=== PATIENT | male | born 1970 | race Caucasian/White ===

== ENCOUNTER 2023-04-30 14:18 | Inpatient (IN) ==
[2023-04-30] MEDS ORDERED: fentaNYL 100 MCG/2 ML VIAL IV ONE (14:46)
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
[2023-04-30 15:47] LABS: POC Pro Time 11.5 (11.9-14.5)
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
[2023-04-30 15:53] LABS: POC Calcium, Ionized 1.06 (1.16-1.32); POC Creatinine 1.2 (0.6-1.2); POC Potassium 3.8 (3.3-5.1)
[2023-04-30 16:18] LABS: Basophils # (Auto) 0.02 K/mcL (0.00-0.30); Basophils % (Auto) 0.2 % (0.0-2.0); Eosinophils # (Auto) 0.06 K/mcL (0.00-0.70); Eosinophils % (Auto) 0.7 % (0.0-7.0); Hematocrit 45.8 % (40.1-51.0); Hemoglobin 15.1 g/dL (13.7-17.5); Lymphocytes # (Auto) 1.76 K/mcL (1.50-4.80); Lymphocytes % (Auto) 19.9 % (15.5-49.0); Mean Cell Volume 89.3 fL (80.0-100.0); Mean Platelet Volume 11.7 fL (8.8-12.5); Monocytes # (Auto) 0.53 K/mcL (0.10-0.90); Neutrophils % (Auto) 72.6 % (38.0-78.0); Platelet Count 169 K/mcL (140-440); RBC 5.13 M/mcL (4.63-6.08); WBC 8.9 K/mcL (4.5-11.0)
[2023-04-30] MEDS ORDERED: ceFAZolin 2 GM in DEXTROSE 5% IN WATER 50 ML IV SCH (17:45)
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
[2023-04-30] MEDS ORDERED: ceFAZolin 1 GM VIAL ONE (17:54)
[2023-04-30 18:12] LABS: Amphetamine Screen,Urine None detected; Appearance,Urine CLEAR (Clear); Barbiturate Screen,Urine None detected; Benzodiazepines Screen,Urine None detected; Bilirubin,Urine Negative (Negative); Cannabinoid Screen,Urine Suspect Positive; Cocaine Screen,Urine None detected; Color,Urine YELLOW; Culture Indicated,Urine No; Glucose,Urine (UA) Negative (Negative); Ketones,Urine Negative (Negative); Leukocyte Esterase,Urine Negative /uL (Negative); Nitrate,Urine Negative (Negative); Opiate Screen,Urine None detected; Oxycodone, Urine Screen None detected; Phencyclidine Screen,Urine None detected; Protein,Urine Negative (Negative); Specific Gravity,Urine 1.031 (1.000-1.035); Urine Blood Negative (Negative)
[2023-04-30] MEDS ORDERED: TRANEXAMIC ACID 1,000 MG/10 ML VIAL ONE (18:15)
[2023-04-30] MEDS ORDERED: HYDROmorphone 1 MG/ML SYRINGE ONE (18:15)
[2023-04-30] MEDS ORDERED: KETAMINE 50 MG/ML Syringe IV ONE (18:15)
[2023-04-30] MEDS ORDERED: SUGAMMADEX SODIUM 200 MG/2 ML VIAL IV ONE (18:15)
[2023-04-30] MEDS ORDERED: LIDOCAINE HCL/PF 100 MG/5 ML SYRINGE IV ONE (18:15)
[2023-04-30] MEDS ORDERED: PROPOFOL 200 MG/20 ML VIAL IV ONE (18:15)
[2023-04-30] MEDS ORDERED: DEXAMETHASONE 10 MG/ML VIAL ONE (18:15)
[2023-04-30] MEDS ORDERED: MAGNESIUM SULFATE 2 GM/50 ML BAG IV ONE (18:15)
[2023-04-30] MEDS ORDERED: ONDANSETRON 4 MG/2 ML VIAL ONE ×2 (18:15→20:58)
[2023-04-30] MEDS ORDERED: ROCURONIUM 10 MG/ML ML IV ONE (18:15)
[2023-04-30] MEDS ORDERED: ePHEDrine 50 MG/5 ML SYRINGE (ANEST) IV ONE (18:15)
[2023-04-30] MEDS ORDERED: VANCOMYCIN 1 GM VIAL TOPICAL SCH (20:00)
[2023-04-30] MEDS ORDERED: BENZOCAINE/MENTHOL 1 LOZENGE PO PRN (20:02)
[2023-04-30] MEDS ORDERED: POLYETHYLENE GLYCOL 3350 17 GM PACKET PO PRN (20:02)
[2023-04-30] MEDS ORDERED: ONDANSETRON 4 MG ODT TABLET SL PRN (20:02)
[2023-04-30] MEDS ORDERED: morphine 4 MG/ML VIAL IV PRN (20:02)
[2023-04-30] MEDS ORDERED: BISACODYL 10 MG SUPP.RECT PR PRN (20:02)
[2023-04-30] MEDS ORDERED: MAGNESIUM HYDROXIDE 30 ML ORAL.SUSP PO PRN (20:02)
[2023-04-30] MEDS ORDERED: FLEETS ADULT ENEMA PR PRN (20:02)
[2023-04-30] MEDS ORDERED: ONDANSETRON 4 MG/2 ML VIAL IV PRN ×2 (20:02→20:11)
[2023-04-30] MEDS ORDERED: NITROGLYCERIN 0.4 MG TAB.SUBL SL PRN (20:08)
[2023-04-30] MEDS ORDERED: LACTATED RINGERS 250 ML IV PRN (20:11)
[2023-04-30] MEDS ORDERED: MEPERIDINE 25 MG/ML VIAL IV PRN (20:11)
[2023-04-30] MEDS ORDERED: fentaNYL 100 MCG/2 ML VIAL IV PRN (20:11)
[2023-04-30] MEDS ORDERED: NALOXONE HCL 0.4 MG/ML VIAL IV PRN (20:11)
[2023-04-30] MEDS ORDERED: METHOCARBAMOL 1,000 MG/10 ML VIAL IV PRN (20:11)
[2023-04-30] MEDS ORDERED: PROMETHAZINE 25 MG/ML VIAL IV PRN (20:11)
[2023-04-30] MEDS ORDERED: ACETAMINOPHEN 1,000 MG/100 ML BAG IV ONE ×2 (20:11→20:22)
[2023-04-30] MEDS ORDERED: IPRATROPIUM/ALBUTEROL 3 ML AMPUL.NEB NEB PRN (20:11)
[2023-04-30] MEDS ORDERED: diphenhydrAMINE 50 MG/ML VIAL IV PRN (20:11)
--- NOTE | 2023-04-30 20:13 | Brief Operative Note ---
Brief Operative Note Date of procedure: 04/30/23 Pre-op diagnosis: Left hip fracture Post-op diagnosis: same Procedure: ADRIAN Grafts/Implants: Yes Anesthesia: GETA Findings: Fracture into troch Complications: none Surgeon: Izaiah Avelar Make Up Girl: Duane Metcalf Estimated blood loss (cc): 300 Specimens Removed/Pathology: none sent Condition: stable
[2023-04-30] MEDS ORDERED: LACTATED RINGERS 1,000 ML IV SCH (20:15)
[2023-04-30] MEDS ORDERED: METHOCARBAMOL 1,000 MG/10 ML VIAL ONE (20:18)
[2023-04-30] MEDS ORDERED: KETOROLAC 30 MG/ML VIAL IV ONE (22:00)
[2023-04-30] MEDS: HYDROCODONE/APAP 7.5/325MG TABLET PO PRN (22:06)
[2023-04-30] MEDS: NAPROXEN 250 MG TABLET PO PRN (22:06)
[2023-04-30] MEDS: DOCUSATE SODIUM 100 MG CAPSULE PO SCH (22:07)
[2023-04-30] MEDS: 0.9 % SODIUM CHLORIDE 10 ML SYRINGE IV SCH (22:07)
[2023-04-30] MEDS: GABAPENTIN 300 MG CAPSULE PO SCH (22:07)
[2023-04-30] MEDS: 0.45 % SODIUM CHLORIDE 1,000 ML IV SCH (22:07)
[2023-04-30] MEDS: SENNOSIDES 1 TABLET PO SCH (22:07)
[2023-04-30] MEDS ORDERED: KETOROLAC 30 MG/ML VIAL ONE (23:03)
[2023-04-30] MEDS: KETOROLAC 30 MG/ML VIAL IV SCH (23:35)
[2023-05-01] MEDS ORDERED: ceFAZolin 1 GM VIAL ONE (01:02)
[2023-05-01] MEDS ORDERED: HYDROmorphone 0.5 MG/0.5 ML SYRINGE ONE (01:03)
[2023-05-01] MEDS: HYDROmorphone 0.5 MG/0.5 ML SYRINGE IV PRN ×3 (01:12→21:50)
[2023-05-01] MEDS ORDERED: ceFAZolin 2 GM in DEXTROSE 5% IN WATER 50 ML IV SCH (02:00)
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
--- NOTE | 2023-05-01 03:23 | XRay Report ---
CLINICAL INFORMATION: left total hip arthroplasty COMPARISON: None. FINDINGS: Four digital images are submitted from the OR of the left and right hip. On the image provided the left transcervical fracture has been reduced to near-anatomic alignment. Both hip joints are normal in width and alignment without arthritic change. Total fluoroscopy time 0.3 minutes. IMPRESSION: Left transcervical fracture reduced to anatomic alignment intraoperatively Interpreted and Authenticated by: Lewis Borden 05/01/23
[2023-05-01] MEDS: METHOCARBAMOL 750 MG TABLET PO PRN ×2 (03:33→15:47)
[2023-05-01] MEDS: HYDROCODONE/APAP 7.5/325MG TABLET PO PRN ×3 (03:33→15:48)
[2023-05-01] MEDS ORDERED: KETOROLAC 15 MG/ML VIAL ONE (04:57)
[2023-05-01] MEDS: KETOROLAC 30 MG/ML VIAL IV SCH ×3 (05:36→17:25)
[2023-05-01] MEDS: 0.9 % SODIUM CHLORIDE 10 ML SYRINGE IV SCH ×3 (05:36→21:51)
[2023-05-01 06:58] LABS: Hematocrit 41.7 % (40.1-51.0); Hemoglobin 13.4 g/dL (13.7-17.5)
[2023-05-01 07:11] LABS: Prothrombin Time 13.6 sec (11.9-14.5)
[2023-05-01] MEDS: LOSARTAN 50 MG TABLET PO SCH (08:15)
[2023-05-01] MEDS: ASPIRIN 81 MG TAB.CHEW PO SCH ×2 (08:15→21:50)
[2023-05-01] MEDS: VITAMIN D3 125 MCG TABLET PO SCH (08:15)
[2023-05-01] MEDS: 0.45 % SODIUM CHLORIDE 1,000 ML IV SCH (08:15)
[2023-05-01] MEDS: DOCUSATE SODIUM 100 MG CAPSULE PO SCH ×2 (08:15→21:50)
[2023-05-01] MEDS: HYDROCHLOROTHIAZIDE 25 MG TABLET PO SCH (08:15)
[2023-05-01] MEDS: ACETAMINOPHEN 325 MG TABLET PO PRN ×2 (08:17→15:48)
[2023-05-01] MEDS ORDERED: ceFAZolin 1 GM VIAL IV SCH (10:00)
--- NOTE | 2023-05-01 12:09 | General Surgery Progress Note ---
SUBJECTIVE Subjective Patient information: Note initiated : 05/01/23 at 12:07 pm Service Date, if different from initiated Date: [] Patient: Juan F Foote 53 y/o M admitted on 04/30/23. Chief Complaint: [] Principal diagnosis: left hip fracture Constitutional Vitals: Vital Signs Temp Pulse Resp BP Pulse Ox O2 Del Method O2 Flow Rate 97.9 F 65 16 129/79 97 Room Air 0 05/01/23 08:21 05/01/23 08:21 05/01/23 08:21 05/01/23 08:21 05/01/23 08:21 05/01/23 08:21 04/30/23 20:57 Period Temp Pulse Resp BP Sys/Watson Pulse Ox O2 Del Method O2 Flow Rate Last 24 Hr 97.0 F-98.3 F 65-111 13-18 111-174/78-113 89-100 Oxymask-Room Air 0-4 Intake and Output 05/01/23 05/01/23 05/01/23 03:59 11:59 19:59 Intake Total 1701 1420 Output Total 1100 700 Balance 601 720 Weight 172 lb 12.8 oz Intake & Output: Intake & Output 05/01/23 05/01/23 05/01/23 03:59 11:59 19:59 Intake Total 1701 1420 Output Total 1100 700 Balance 601 720 Weight 172 lb 12.8 oz Intake: IV 161 1000 Sodium Chloride 0.45% 1,000 ml 1000 @ 100 mls/hr IV .Q10H DWAIN Rx#: [id number] Lactated Ringers 1,000 ml @ 20 11 mls/hr IV .Q24H DWAIN Rx#: [id number] Ancef 2 gm In Dextrose 5% in 50 Water 50 ml @ 100 mls/hr IV Q8H DWAIN Rx#:[id number] Oral 740 420 IV - Manual Only 800 Output: Urine Catheter Amount 400 Void Amount 400 700 Estimated Blood Loss 300 Other: Meal snack Percent of Meal Consumed 100% Feeding Ability Independent Urine Appearance Clear Clear Urine Color Yellow Yellow Extremities Exam Extremities exam: Present neurovascular intact A/P Assessment and plan (1) Femoral neck fracture: Assessment and plan: post mack Plan: mobilize dc planning Status: Acute (2) Fracture of greater trochanter: Assessment and plan: will follow fracture non operatively Plan: continue non weight bearing Status: Acute Time Spent With Patient Time: Total time spent is greater than 50% in coordination of care (as documented) at patient's floor/unit and/or counseling patient:
[2023-05-01] MEDS: NAPROXEN 250 MG TABLET PO PRN (15:48)
[2023-05-01] MEDS: GABAPENTIN 300 MG CAPSULE PO SCH (21:50)
[2023-05-01] MEDS: SENNOSIDES 1 TABLET PO SCH (21:50)
[2023-05-02] MEDS: KETOROLAC 30 MG/ML VIAL IV SCH ×3 (00:28→15:13)
[2023-05-02] MEDS: HYDROCODONE/APAP 7.5/325MG TABLET PO PRN ×2 (02:43→10:57)
[2023-05-02] MEDS: METHOCARBAMOL 750 MG TABLET PO PRN ×2 (02:43→10:58)
[2023-05-02] MEDS: 0.9 % SODIUM CHLORIDE 10 ML SYRINGE IV SCH ×2 (06:12→15:14)
[2023-05-02 06:38] LABS: Hematocrit 35.2 % (40.1-51.0); Hemoglobin 11.5 g/dL (13.7-17.5)
[2023-05-02 06:52] LABS: INR 0.9 (0.9-1.1); Prothrombin Time 12.6 sec (11.9-14.5)
--- NOTE | 2023-05-02 06:55 | Discharge Summary ---
Discharge Provider Provider IMPORTANT FOLLOW-UP INFORMATION FOR PCP: Patient information: Note initiated : 05/02/23 at 6:51 am Service Date, if different from initiated Date: [] Patient: Juan F Foote 53 y/o M admitted on 04/30/23. Chief Complaint: [] Date of admission: 04/30/23 21:00 Discharge date: 05/02/23 Primary care physician: Mariana Santana PA-C Admitting clinician: Izaiah Avelar Consults: 04/30/23 15:55 Consult to Physician [CONS] Stat Comment: Consulting Provider: Izaiah Avelar Reason For Exam: Physician to Consult COURSE Hospital Course Hospital course: The patient was provided routine pain management and maintained on prophylactic abx. PT/OT was provided throughout his stay. He is discharged to f/u in 2 weeks. Discharge diagnosis: S/p left ADRIAN Reason for admission: Left hip fx Procedures: Left ADRIAN Complications: None Time Spent with Patient Time attestation: Total time spent providing and/or coordinating discharge services: Time spent: Less than 30 minutes Physical Examination Exam Incision healing: Yes Incision draining: No Incision red: No Incision swollen: No Clean and dry: Yes Weight bearing status: partial Range of motion: 50% on LLE DC Instructions-General Patient Instructions Dressing Care: May shower in 2 days Additional Dressing Instructions: May remove dressing prior to showering and replace with dry dressing after showers. Keep mesh intact. Discharge Plan Patient/Caregiver Discharge Instructions Activity: ambulate only with your walker Diet: Regular Diet Prescriptions: New Aspirin 81 mg PO BID Qty: 60 0RF hydrocodone-acetaminophen 7.5-325 mg Tablet 1 tab PO Q4HP PRN (Reason: Per Pain Protocol) Qty: 40 0RF Continued ergocalciferol (vitamin D2) 1,250 mcg (50,000 unit) capsule 1,250 mcg PO DAILY gabapentin 300 mg capsule 300 mg PO QHS hydrochlorothiazide 25 mg tablet 25 mg PO QAM losartan 50 mg tablet 100 mg PO QAM naproxen 500 mg tablet 500 mg PO BID PRN (Reason: Pain) nitroglycerin 0.4 mg tablet, sublingual 0.4 mg sublingual Q5M PRN (Reason: Angina) Rx Instructions: do not exceed 3 doses per episode acetaminophen [Tylenol 8 Hour] 650 mg tablet extended release 650 mg PO Q8H PRN (Reason: pain) Qty: 90 0RF Prescription drug monitoring program results: PDMP reviewed and no issues identified Follow Up Plan Follow up with: Mariana Santana PA-C [Primary Care Provider] - Patient Disposition: Home Health Service Hospital Course: uneventful post op course Prognosis: Fair Rehab Potential: Good I certify that the patient requires SNF services: Yes Overall status at discharge: patient is not back to baseline Discharge Orders: Discharge Order (Routine); Ordered 05/01/23 Ordered By: Izaiah Avelar Pending Pending Pending: Resuscitation Status Resuscitate (Full Code) Diet Regular Diet Start Sat Apr 30 2005 Acetaminophen (Acetaminophen 325 Mg Tablet) 650 mg PO Q8HP PRN PRN Reason: pain Last Admin: 05/01/23 15:48 Dose: 650 mg Documented By: Admin: 05/01/23 08:17 Dose: 650 mg Documented By: ISABEL Hydrocodone Bitart/Acetaminophen (Hydrocodone/Apap 7.5/325mg Tablet) 0 tab PO Q4HP PRN; Protocol PRN Reason: Per Pain Protocol Last Admin: 05/02/23 02:43 Dose: 2 tab Documented By: Admin: 05/01/23 15:48 Dose: 2 tab Documented By: Admin: 05/01/23 08:17 Dose: 2 tab Documented By: Admin: 05/01/23 03:33 Dose: 2 tab Documented By: Admin: 04/30/23 22:06 Dose: 2 tab Documented By: SEVERINO Aspirin (Aspirin 81 Mg Tab.Chew) 81 mg PO BID [facility] Last Admin: 05/01/23 21:50 Dose: 81 mg Documented By: Admin: 05/01/23 08:15 Dose: 81 mg Documented By: ISABEL Docusate Sodium (Docusate Sodium 100 Mg Capsule) 100 mg PO BID [facility] Last Admin: 05/01/23 21:50 Dose: 100 mg Documented By: Admin: 05/01/23 08:15 Dose: 100 mg Documented By: Admin: 04/30/23 22:07 Dose: 100 mg Documented By: SEVERINO Gabapentin (Gabapentin 300 Mg Capsule) 300 mg PO QHS [facility] Last Admin: 05/01/23 21:50 Dose: 300 mg Documented By: Admin: 04/30/23 22:07 Dose: 300 mg Documented By: SEVERINO Hydrochlorothiazide (Hydrochlorothiazide 25 Mg Tablet) 25 mg PO [facility] Last Admin: 05/01/23 08:15 Dose: 25 mg Documented By: ISABEL Hydromorphone HCl (Hydromorphone 0.5 Mg/0.5 Ml Syringe) 0.5 mg IV Q1HP PRN; Protocol PRN Reason: Per Pain Protocol Last Admin: 05/01/23 21:50 Dose: 0.5 mg Documented By: Admin: 05/01/23 11:15 Dose: 0.5 mg Documented By: Admin: 05/01/23 01:12 Dose: 0.5 mg Documented By: SEVERINO Ketorolac Tromethamine (Ketorolac 30 Mg/Ml Vial) 15 mg IV Q6 [facility] Stop: 05/02/23 18:01 Last Admin: 05/02/23 06:12 Dose: 15 mg Documented By: Admin: 05/02/23 00:28 Dose: 15 mg Documented By: Admin: 05/01/23 17:25 Dose: 15 mg Documented By: Admin: 05/01/23 11:15 Dose: 15 mg Documented By: Admin: 05/01/23 05:36 Dose: 15 mg Documented By: Admin: 04/30/23 23:35 Dose: Not Given Documented By: SEVERINO Losartan Potassium (Losartan 50 Mg Tablet) 100 mg PO [facility] Last Admin: 05/01/23 08:15 Dose: 100 mg Documented By: ISABEL Methocarbamol (Methocarbamol 750 Mg Tablet) 750 mg PO Q6HP PRN PRN Reason: Muscle Spasm Last Admin: 05/02/23 02:43 Dose: 750 mg Documented By: Admin: 05/01/23 15:47 Dose: 750 mg Documented By: Admin: 05/01/23 03:33 Dose: 750 mg Documented By: SEVERINO Naproxen (Naproxen 250 Mg Tablet) 500 mg PO BIDP PRN; Protocol PRN Reason: Pain Last Admin: 05/01/23 15:48 Dose: 500 mg Documented By: Admin: 04/30/23 22:06 Dose: 500 mg Documented By: SEVERINO Senna (Sennosides 1 Tablet) 2 tab PO HS [facility] Last Admin: 05/01/23 21:50 Dose: 2 tab Documented By: Admin: 04/30/23 22:07 Dose: 2 tab Documented By: SEVERINO Sodium Chloride (0.9 % Sodium Chloride 10 Ml Syringe) 10 ml IV Q8 [facility] Last Admin: 05/02/23 06:12 Dose: 10 ml Documented By: Admin: 05/01/23 21:51 Dose: 10 ml Documented By: Admin: 05/01/23 15:50 Dose: 10 ml Documented By: Admin: 05/01/23 05:36 Dose: 10 ml Documented By: Admin: 04/30/23 22:07 Dose: 10 ml Documented By: SEVERINO Vitamin D (Vitamin D3 125 Mcg Tablet) 125 mcg PO DAILY [facility] Last Admin: 05/01/23 08:15 Dose: 125 mcg Documented By: ISABEL Shift Summary 05/02/23 05:25 Shift Summary by Dione Alaniz Primary Diagnosis: Left Total Hip Interior Arthroplasty Registration Status: IP Date of Surgery (if applicable): 04/30/23 Pertinent Medical Dx/Issue(s): CVA, GERD, HTN, OAB, Chronic knee pain. Med management (antibiotics, diuretics, BP): Hydrochlorothiazide Skin/Wound Care: Left hip with dressing C/D/I Vital Signs with Trends: Hypotensive with MAP >65 O2, liter flow/saturations: RA Pain management (acute vs. chronic): [employer]oyd combs, electrical assembly supervisor Toradol Lab/Rad (abnormals, trends): Neuro/Mental Status: A&O X4 Cardiac Rhythm, Alarm Settings: N/A Urinary Elimination Device: Urinal Urinary output greater than 30mL/hr? Yes Date of last BM: 04/29/23 Lines/Tubes: L AC SL Activity: NWB Recommendations/questions for MD: Discharge Plan (needs, disposition, etc): CM's note ----He quickly declined SNF stating, "I am not going ot a fdc, don't even mention it". Case management to re-visit prior to dc and after therapy eval. Initialized on 05/02/23 05:25 - END OF NOTE
--- NOTE | 2023-05-02 06:57 | Orthopedic Progress Note ---
SUBJECTIVE Subjective Patient information: Note initiated : 05/02/23 at 6:55 am Service Date, if different from initiated Date: [] Patient: Juan F Foote 53 y/o M admitted on 04/30/23. Chief Complaint: [S/p left ADRIAN] Principal diagnosis: left hip fracture Constitutional Vitals: Vital Signs Temp Pulse Resp BP Pulse Ox O2 Del Method O2 Flow Rate 98.4 F 69 17 113/67 94 Room Air 0 05/02/23 04:00 05/02/23 04:00 05/02/23 04:00 05/02/23 04:00 05/02/23 04:00 05/02/23 04:00 04/30/23 20:57 Period Temp Pulse Resp BP Sys/Watson Pulse Ox O2 Del Method O2 Flow Rate Last 24 Hr 97.5 F-98.4 F 65-73 14-17 106-129/61-79 93-97 Room Air-Room Air Intake and Output 05/01/23 05/02/23 05/02/23 19:59 03:59 11:59 Intake Total 1140 800 Output Total 900 375 600 Balance 240 -375 200 Weight 169 lb 12.8 oz Intake & Output: Intake & Output 05/01/23 05/02/23 05/02/23 19:59 03:59 11:59 Intake Total 1140 800 Output Total 900 375 600 Balance 240 -375 200 Weight 169 lb 12.8 oz Intake: Oral 1140 800 Output: Void Amount 900 375 600 Other: Meal Lunch Dinner Percent of Meal Consumed 90 100% Feeding Ability Independent Urine Appearance Clear Clear Clear Urine Color Yellow Yellow Yellow Urine Odor [place] Normal General appearance: cooperative and no acute distress Head Head exam: Present atraumatic Extremities Exam Extremities exam: Present Clair's sign (Negative bilaterally), Foot pink and warm and neurovascular intact Additional comments: Negative bilaterally Neurological Exam Neurological exam: Present alert and oriented X3 OBJ DATA Labs 05/02/23 05:52 Labs: Abnormal Lab Results 05/02/23 05/01/23 04/30/23 05:52 05:48 17:06 Hgb 11.5 L 13.4 L Hct 35.2 L Immature Gran % (Auto) POC PT POC Anion Gap POC WB Ioniz Calcium Urine Urobilinogen 2.0 A U Marijuana (THC) Screen 07/15/23 07/15/23 07/15/23 17:06 15:49 15:48 Hgb Hct Immature Gran % (Auto) 0.6 H POC PT POC Anion Gap 18.0 H POC WB Ioniz Calcium 1.06 L Urine Urobilinogen U Marijuana (THC) Screen Suspect positive A 04/30/23 15:44 Hgb Hct Immature Gran % (Auto) POC PT 11.5 L POC Anion Gap POC WB Ioniz Calcium Urine Urobilinogen U Marijuana (THC) Screen Meds: Medications Acetaminophen (Acetaminophen 325 Mg Tablet) 650 mg PO Q8HP PRN PRN Reason: pain Last Admin: 05/01/23 15:48 Dose: 650 mg Hydrocodone Bitart/Acetaminophen (Hydrocodone/Apap 7.5/325mg Tablet) 0 tab PO Q4HP PRN; Protocol PRN Reason: Per Pain Protocol Last Admin: 05/02/23 02:43 Dose: 2 tab Aspirin (Aspirin 81 Mg Tab.Chew) 81 mg PO BID [facility] Last Admin: 05/01/23 21:50 Dose: 81 mg Bisacodyl (Bisacodyl 10 Mg Supp.Rect) 10 mg NM Q2-3DAYS PRN PRN Reason: Constipation Docusate Sodium (Docusate Sodium 100 Mg Capsule) 100 mg PO BID [facility] Last Admin: 05/01/23 21:50 Dose: 100 mg Gabapentin (Gabapentin 300 Mg Capsule) 300 mg PO QHS [facility] Last Admin: 05/01/23 21:50 Dose: 300 mg Hydrochlorothiazide (Hydrochlorothiazide 25 Mg Tablet) 25 mg PO QAM [facility] Last Admin: 05/01/23 08:15 Dose: 25 mg Hydromorphone HCl (Hydromorphone 0.5 Mg/0.5 Ml Syringe) 0.5 mg IV Q1HP PRN; Protocol PRN Reason: Per Pain Protocol Last Admin: 05/01/23 21:50 Dose: 0.5 mg Ketorolac Tromethamine (Ketorolac 30 Mg/Ml Vial) 15 mg IV Q6 [facility] Stop: 05/02/23 18:01 Last Admin: 05/02/23 06:12 Dose: 15 mg Losartan Potassium (Losartan 50 Mg Tablet) 100 mg PO QAM [facility] Last Admin: 05/01/23 08:15 Dose: 100 mg Magnesium Hydroxide (Magnesium Hydroxide 30 Ml Oral.Susp) 30 ml PO BIDP PRN PRN Reason: Constipation Methocarbamol (Methocarbamol 750 Mg Tablet) 750 mg PO Q6HP PRN PRN Reason: Muscle Spasm Last Admin: 05/02/23 02:43 Dose: 750 mg Naproxen (Naproxen 250 Mg Tablet) 500 mg PO BIDP PRN; Protocol PRN Reason: Pain Last Admin: 05/01/23 15:48 Dose: 500 mg Nitroglycerin (Nitroglycerin 0.4 Mg Tab.Subl) 0.4 mg SL Q5M PRN PRN Reason: Angina Ondansetron HCl (Ondansetron 4 Mg/2 Ml Vial) 4 mg IV Q4HP PRN; Protocol PRN Reason: Nausea And Vomiting Ondansetron HCl (Ondansetron 4 Mg Odt Tablet) 4 mg SL Q4HP PRN; Protocol PRN Reason: Nausea And Vomiting Polyethylene Glycol (Polyethylene Glycol 3350 17 Gm Packet) 17 gm PO DAILYP PRN PRN Reason: Constipation Senna (Sennosides 1 Tablet) 2 tab PO HS [facility] Last Admin: 05/01/23 21:50 Dose: 2 tab Sodium Biphosphate/Sodium Phosphate (Fleets Adult Enema) 1 dose NM Q3-4DAYS PRN PRN Reason: Constipation Sodium Chloride (0.9 % Sodium Chloride 10 Ml Syringe) 10 ml IV Q8 [facility] Last Admin: 05/02/23 06:12 Dose: 10 ml Throat Lozenges (Benzocaine/Menthol 1 Lozenge) 1 lozenge PO PRN PRN PRN Reason: Sore Throat Vitamin D (Vitamin D3 125 Mcg Tablet) 125 mcg PO DAILY [facility] Last Admin: 05/01/23 08:15 Dose: 125 mcg A/P Assessment and plan (1) Femoral neck fracture: Assessment and plan: Continue PT/OT. 50% WB on LLE. Discharge to home today with home health. F/u with PAULIE in 2 weeks. Status: Acute Time Spent With Patient Time: Total time spent is greater than 50% in coordination of care (as documented) at patient's floor/unit and/or counseling patient:
--- NOTE | 2023-05-02 07:33 | EKG ---
[facility] Test Date: 2023-04-30 Pat Name: Juan F Foote Department: ED Room: Gender: Male Nodulizer: SS : [id number] Requested By: Jean-Claude Anton Order Number: [id number] Reading MD: Lewis Wade M.D. Measurements Intervals [place] Rate: 76 P: 65 DE: 157 QRS: -5 QRSD: 87 T: 13 QT: 370 QTc: 416 Interpretive Statements Sinus rhythm Electronically Signed On 05-02-2023 7:33:25 PDT by Lewis Wade M.D. /[email or web address]/[email or web address]/[id number]
[2023-05-02] MEDS: VITAMIN D3 125 MCG TABLET PO SCH (09:55)
[2023-05-02] MEDS: HYDROCHLOROTHIAZIDE 25 MG TABLET PO SCH (09:55)
[2023-05-02] MEDS: DOCUSATE SODIUM 100 MG CAPSULE PO SCH (09:55)
[2023-05-02] MEDS: ASPIRIN 81 MG TAB.CHEW PO SCH (09:55)
[2023-05-02] MEDS: LOSARTAN 50 MG TABLET PO SCH (09:55)
--- NOTE | 2023-05-06 12:16 | Operative Note ---
DATE OF OPERATION: 04/30/2023 PREOPERATIVE DIAGNOSIS: Left femoral neck fracture. POSTOPERATIVE DIAGNOSIS: Left femoral neck fracture. OPERATION PROPOSED: Left total hip arthroplasty. OPERATION PERFORMED: Left total hip arthroplasty. SURGEON: Izaiah Avelar M.D. PERFUMER: Duane Metcalf PA-C. The assistance of the PA was required for the safe and efficient completion of the entire case. The expertise and technical skill of this provider was required throughout the case. The PA assisted with preoperative coordination, intraoperative retraction, wound closure, dressing and splint application, as well as postoperative documentation and care coordination. INDICATIONS: This is a gentleman who has had a femoral neck fracture. He is young enough that we have elected to proceed with a total hip arthroplasty as opposed to simply a hemiarthroplasty. DESCRIPTION OF PROCEDURE: Informed consent was obtained. He was taken to the operating room and provided with appropriate anesthetic and prophylactic antibiotics. He was carefully positioned. The hip was prepped sterilely. A standard anterior approach to the hip was performed. I dissected through the fascia of the tensor muscle, dissected up and over the muscle belly. I suture ligated traversing vasculature. The hip capsule was cut and T'd. The fractured femoral head and neck was removed. I did refine the femoral neck cut. I then sequentially reamed the acetabulum and impacted a [place] cup. This was paired with a neutral liner after placing a screw. I then exposed the proximal femur. I lateralized the approach. I entered the canal with a pigtail awl, sequentially reamed and broached. I trialed a variety of components and impacted an ACTIS stem with an appropriately-sized head ball. There was a fracture involving the greater trochanter that seemed nondisplaced and we elected to treat this nonoperatively with guarded weightbearing. The wounds were irrigated thoroughly. The capsule was repaired with an Ethibond. An 0 Vicryl running in the fascia of the tensor musculature was utilized, 2-0 inverted deep dermal and Dermabond in the skin. The procedure was tolerated well. No complications. Estimated blood loss was 200 mL. GDD:lana Job ID: [id number] Doc ID: [id number] Izaiah Avelar MD
== END 2023-05-02 11:14 | disposition home health service (06) | DRG 522 ==
LOC: ED 14:18 → ICU 14:18 → SUR 17:32 → MEDSUR 21:00
PROVIDERS: ADMIT Orthopaedic Surgery Orthopaedic Surgery of the Spine; ATTEND Orthopaedic Surgery Orthopaedic Surgery of the Spine